=== PATIENT | female | born 1985 | race Caucasian/White ===

== ENCOUNTER 2020-04-18 11:38 | Emergency (ER) | payer OTHER ==
[~2020-04-18] VITALS: Ht 157.5 cm; Wt 73.0 kg
[2020-04-18 11:45] VITALS: Ht 157.5 cm; Wt 73.0 kg
[2020-04-18] MEDS ORDERED: IBU600 M2 PO (12:53)
[2020-04-18 13:08] VITALS: BP 121/714
== END 2020-04-18 13:08 | disposition home or self-care (01) ==
LOC: ED 11:38
DX: S62.615A Displaced fracture of proximal phalanx of left ring finger, initial encounter for closed fracture (principal); Z98.51 Tubal ligation status; Y04.0XXA Assault by unarmed brawl or fight, initial encounter; Y93.89 Activity, other specified; Y92.89 Other specified places as the place of occurrence of the external cause; Y99.8 Other external cause status